=== PATIENT | male | born 1970 | race Caucasian/White ===

== ENCOUNTER 2017-12-23 09:59 | Emergency (ER) | payer SELFPAY | END 2017-12-23 11:42 | disposition home or self-care (01) | LOC: ER 11:42 | DX: R07.1 Chest pain on breathing (principal); I25.2 Old myocardial infarction; I10 Essential (primary) hypertension; Z95.5 Presence of coronary angioplasty implant and graft | CPT/HCPCS: 71046; 99284-25 ==

== ENCOUNTER → 2021-10-21 | Outpatient (CLI) | payer OTHER ==
[2017-12-23 10:30] VITALS: BP 176/102
[~2021-10-21] MED LIST: IBUP-1060 PO
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
== END ==
LOC: RAD 08:34
PROVIDERS: ATTEND Anesthesiology Pain Medicine
DX: M85.88 Other specified disorders of bone density and structure, other site (principal)
CPT/HCPCS: 72100